=== PATIENT | female | born 2000 | race Hispanic/Latino ===

== ENCOUNTER 2023-01-29 00:31 | Emergency (ER) | payer OTHER ==
[~2023-01-29] VITALS: Ht 162.6 cm; Wt 68.9 kg
[2023-01-29 00:32] VITALS: BP 138/73; TEMP 99.3
[2023-01-29] MEDS ORDERED: ACET-683 PO (00:39)
[2023-01-29] MEDS ORDERED: BACT800T5 PO (00:39)
[2023-01-29] MEDS ORDERED: IBUP80TA PO (00:39)
[2023-01-29] MEDS ORDERED: MORPHINE 4 MG/ML 1ML VIAL SC ONE (03:55)
[2023-01-29 03:58] VITALS: O2SAT 97
[2023-01-29] MEDS ORDERED: NORCO, ANEXSIA 5/325MG TABLET (HYDROcodone/ACETAMINOPHEN) PO ONE (07:05)
[2023-01-29] MEDS ORDERED: HYDR-3713 PO (07:07)
== END 2023-01-29 07:14 | disposition home or self-care (01) ==
LOC: M ED 00:31
DX: L05.01 Pilonidal cyst with abscess (principal); Z79.899 Other long term (current) drug therapy
CPT/HCPCS: 10080; 87070; 87077; 87186; 87205; 99284; S0020

== ENCOUNTER 2023-06-11 07:24 | Day surgery (SDC) | payer OTHER ==
[~2023-06-11] VITALS: Ht 162.6 cm; Wt 66.2 kg
[~2023-06-11 07:24] MED LIST: ACET-683 PO; BACT800T5 PO; CelecoXIB 400 MG CAP PO ONE; HYDR-3713 PO; IBUP80TA PO; MIDAZOLAM INJ 2MG/2ML VIAL As Ordered ONE; ceFAZolin SOD 2 GM in IV 1 EA IV ONE; fentaNYL 100 MCG/2 ML INJECTION As Ordered ONE
[2023-06-11] MEDS ORDERED: LR 1,000 ML IV SCH ×2 (08:05→10:05)
[2023-06-11] MEDS ORDERED: propofoL 200 MG/20 ML VIAL As Ordered ONE (08:09)
[2023-06-11] MEDS ORDERED: LIDOCAINE 2% 100MG/5ML SDV (FOR ANES.) As Ordered ONE (08:09)
[2023-06-11] MEDS ORDERED: MIDAZOLAM 5MG/ML 1ML VIAL As Ordered ONE (08:37)
[2023-06-11] MEDS ORDERED: LIDOCAINE 1% MDV 20ML VIAL As Ordered ONE (09:35)
[2023-06-11] MEDS ORDERED: CHLOROPROCAINE PRES. FREE 3% 20ML VIAL As Ordered ONE (09:56)
[2023-06-11] MEDS ORDERED: KETOROLAC 60MG 2ML VIAL As Ordered ONE (09:57)
[2023-06-11] MEDS ORDERED: ONDANSETRON 4MG 2ML VIAL As Ordered ONE (09:57)
[2023-06-11] MEDS ORDERED: ACETAMINOPHEN 1000MG 100ML IV BAG As Ordered ONE (09:57)
[2023-06-11] MEDS ORDERED: fentaNYL 100 MCG/2 ML INJECTION IV PRN (10:05)
[2023-06-11] MEDS ORDERED: oxyCODONE 5MG TAB PO PRN (10:05)
[2023-06-11] MEDS ORDERED: ONDANSETRON 4MG 2ML VIAL IV PRN (10:05)
[2023-06-11] MEDS ORDERED: HYDROMORPHONE HCL 0.5 MG/ 0.5 ML SYRINGE IV PRN (10:05)
[2023-06-11] MEDS ORDERED: NORCO, ANEXSIA 5/325MG TABLET (HYDROcodone/ACETAMINOPHEN) PO PRN ×2 (10:35)
[2023-06-11 12:41] VITALS: BP 138/72; TEMP 97.9; O2SAT 96
[2023-06-11] MEDS ORDERED: KETOROLAC 30 MG/ML 1ML VIAL IV SCH (16:00)
== END 2023-06-11 13:06 | disposition home or self-care (01) ==
LOC: M SDC 07:24
PROVIDERS: ATTEND Surgery
DX: L05.91 Pilonidal cyst without abscess (principal)
CPT/HCPCS: 11770; 81025; J0131; J0665; J0690; J1100; J1885; J2250; J2401; J2405; J3010